=== PATIENT | female | born 2000 | race Two or more races ===

== ENCOUNTER 2022-02-23 17:55 | Emergency (ER) | payer MEDICAID, OTHER ==
[~2022-02-23] VITALS: Ht 165.1 cm; Wt 52.2 kg
[2022-02-23] MEDS ORDERED: SODIUM CHLORIDE 0.9% 1,000 ML IVB ONE (18:15)
[2022-02-23 18:44] LABS: Basophils # (auto) 0 10 ^3/uL (0-0.2); Basophils % (auto) 0.3 % (0.0-2.0); Eosinophils # (auto) 0 10 ^3/uL (0-0.8); Eosinophils % (auto) 0.1 % (0.0-7.0); Hematocrit 32.1 % (36.0-46.0); Hemoglobin 10.5 g/dL (12.2-16.2); Lymphocytes # (auto) 1.5 10 ^3/uL (0.4-5.4); Lymphocytes % (auto) 12.4 % (10.0-50.0); Mean Corpuscular Hgb Conc. 32.5 g/dL (32.0-36.0); Mean Corpuscular Volume 73.7 fL (80.0-100.0); Monocytes # (auto) 0.7 10 ^3/uL (0-1.3); Monocytes % (auto) 6.1 % (0.0-12.0); Neutrophils # (auto) 9.8 10 ^3/uL (1.6-8.6); Neutrophils % (auto) 81.1 % (37.0-80.0); Red Blood Cells 4.36 10^6/uL (4.0-5.20); Red Cell Distribution Width 15.9 % (11.8-14.3); White Blood Cell 12.1 10^3/uL (4.4-10.8)
[2022-02-23 18:58] LABS: Albumin 3.9 g/dL (3.4-5.0); Anion Gap 8 (5-15); Blood Alcohol < 3.0 mg/dL (0-5); Blood Urea Nitrogen 6 mg/dL (7-18); Calcium 8.9 mg/dL (8.5-10.1); Carbon Dioxide 24 mmol/L (21-32); Chloride 108 mmol/L (98-107); Glucose 87 mg/dL (74-106); Potassium 3.2 mmol/L (3.5-5.1); Sodium 140 mmol/L (136-145)
[2022-02-23 19:01] LABS: Alanine Aminotransferase 18 U/L (13-56); Alkaline Phosphatase 62 U/L (45-117); Aspartate Aminotransferase 15 U/L (15-37); BUN/Creatinine Ratio 10.3; Bilirubin, Total 0.4 mg/dL (0.2-1.0); GFR African American 169 mL/min; GFR Non-African American 139 mL/min; Total Protein 7.8 g/dL (6.4-8.2)
[2022-02-23 19:01] LABS: Salicylate < 1.7 mg/dL (2.8-20.0)
[2022-02-23 19:08] LABS: Acetaminophen < 2.0 ug/mL (10-30)
[2022-02-23 21:00] VITALS: BP 110/62
[2022-02-23 21:21] LABS: Alcohol, Urine < 3.0 mg/dL (0-10); Amphetamine Screen, Urine NEGATIVE (NEGATIVE); Barbiturate Scree,Urine NEGATIVE (NEGATIVE); Benzodiazephine Screen, Urine NEGATIVE (NEGATIVE); Cannabinoid Screen, Urine NEGATIVE (NEGATIVE); Cocaine Screen, Urine NEGATIVE (NEGATIVE); Opiate Scree,Urine NEGATIVE (NEGATIVE); Phencyclidine Screen, Urine NEGATIVE (NEGATIVE)
== END 2022-02-23 22:49 | disposition home or self-care (01) ==
LOC: ER 17:55 → EDBD 17:55 → ER 21:08
DX: F45.8 Other somatoform disorders (principal); F41.8 Other specified anxiety disorders
CPT/HCPCS: 36415; 80053; 80307; 80320; 80329; 81025; 85025; 93005; 96360; 96361; 99284; J7030